=== PATIENT | male | born 1970 | race Caucasian/White ===

== ENCOUNTER → 2016-08-14 | Outpatient (CLI) | payer BC | LOC: COL.RAD 15:17 | DX: M54.9 Dorsalgia, unspecified (principal); R31.9 Hematuria, unspecified; N13.2 Hydronephrosis with renal and ureteral calculous obstruction; K76.0 Fatty (change of) liver, not elsewhere classified; K44.9 Diaphragmatic hernia without obstruction or gangrene ==

== ENCOUNTER → 2017-01-06 | Outpatient (CLI) | payer BC | LOC: COL.RAD 08:15 | DX: K76.0 Fatty (change of) liver, not elsewhere classified (principal); E66.01 Morbid (severe) obesity due to excess calories ==

== ENCOUNTER → 2018-03-21 | Outpatient (CLI) | payer BC ==
[~2018-03-21] VITALS: Ht 185.4 cm; Wt 159.7 kg
[2018-03-21] VITALS (10 sets, daily range): BP systolic 138–181; BP diastolic 84–104; PULSE 72–92
[~2018-03-21] MED LIST: HCTZ12.5TAB PO; SYNTHROID 0.10.15 MG PO
[2018-03-21 12:24] LABS: PROTHROMBIN TIME 11.1 SECONDS (9.7-12.8)
--- NOTE | 2018-03-21 13:05 | NUR ---
pt to ct per ambulation. Monitors applied to pt.
--- NOTE | 2018-03-21 13:20 | NUR ---
Specimen obtained by Dr Olivas and placed in formalin, specimen labeled.
== END ==
LOC: COL.RAD 03-18 12:30
PROVIDERS: Internal Medicine Gastroenterology
DX: R74.8 Abnormal levels of other serum enzymes (principal); R79.89 Other specified abnormal findings of blood chemistry; E66.01 Morbid (severe) obesity due to excess calories
CPT/HCPCS: J2250; J3010

== ENCOUNTER → 2018-10-24 | Outpatient (CLI) | payer BC | LOC: COL.RAD 08:54 | DX: K75.81 Nonalcoholic steatohepatitis (NASH) (principal); R74.8 Abnormal levels of other serum enzymes; R79.89 Other specified abnormal findings of blood chemistry; E78.00 Pure hypercholesterolemia, unspecified ==

== ENCOUNTER → 2020-08-23 | Outpatient (CLI) | payer BC | LOC: COL.RAD 08:02 | DX: K76.0 Fatty (change of) liver, not elsewhere classified (principal); R16.0 Hepatomegaly, not elsewhere classified; R94.5 Abnormal results of liver function studies ==